=== PATIENT | female | born 1955 | race Caucasian/White ===

== ENCOUNTER → 2017-02-07 | Outpatient (CLI) | payer OTHER, MEDICAID | END | disposition home or self-care (01) | LOC: RD 10:37 | DX: R07.81 Pleurodynia (principal) ==

== ENCOUNTER → 2017-05-13 | Outpatient (CLI) | payer OTHER, MEDICAID | END | disposition home or self-care (01) | LOC: RD 10:18 | DX: M54.16 Radiculopathy, lumbar region (principal) ==

== ENCOUNTER → 2019-08-23 | Outpatient (CLI) | payer OTHER, MEDICAID | END | disposition home or self-care (01) | LOC: RD 10:44 | PROC: BW2FZZZ Computerized Tomography (CT Scan) of Neck (ICD-10-PCS; principal; 2019-08-23) | PROC: BN25ZZZ Computerized Tomography (CT Scan) of Facial Bones (ICD-10-PCS; 2019-08-23) | PROC: BN261ZZ Computerized Tomography (CT Scan) of Mandible using Low Osmolar Contrast (ICD-10-PCS; 2019-08-23) | DX: R22.0 Localized swelling, mass and lump, head (principal) ==